=== PATIENT | male | born 1985 | race Caucasian/White ===

== ENCOUNTER 2019-02-15 16:38 | Emergency (ER) | payer SELFPAY ==
[~2019-02-15] VITALS: Ht 165.1 cm; Wt 84.0 kg
[2019-02-15 16:41] VITALS: Ht 165.1 cm; Wt 84.0 kg
[2019-02-15] MEDS ORDERED: CIPROFLOXACIN 500 MG TAB PO STA (17:05)
[2019-02-15] MEDS ORDERED: ONDANSETRON INJ 8 MG in DEXTROSE 5% 50 ML IV STA (17:05)
[2019-02-15] MEDS ORDERED: SOD CHLORIDE 0.9% 1,000 ML IV STA (17:05)
[2019-02-15] MEDS ORDERED: KETOROLAC 30 MG INJ IV STA (17:05)
--- NOTE | 2019-02-15 17:17 | ERD ---
ER Documentation Chief Complaint Chief Complaint vomitting and abdominal pain since last night HPI Patient is a 33 years old male with no known PMHx presenting to the clinic for NBNB emesis, diffuse abdominal pain, watery diarrhea, bloating, fever, and chills since yesterday night. Patient admits to eating dry shrimp from the [place] that was spoiled. Patient reports of foul odor from his stool with black appearance. Patient reports taking some OTC medication for nausea without resolution. ROS All systems reviewed and are negative except as per history of present illness. Medications Home Meds Active Scripts Ciprofloxacin (Ciprofloxacin) 250 Mg/5 Ml Ness..rec, 250 MG PO BID for 3 Days, ML Prov:FRANCHESCA HDEZ PA-C 02/15/19 Ondansetron Hcl* (Zofran*) 4 Mg Tablet, 4 MG PO Q6H for NAUSEA AND/OR VOMITING, #30 TAB Prov:FRANCHESCA HDEZ PA-C 02/15/19 Loperamide Hcl* (Loperamide Hcl*) 2 Mg Cap, 4 MG PO ONCE for 7 Days, CAP MAX 16 mg/day Prov:FRANCHESCA HDEZ PA-C 02/15/19 PMhx/Soc Medical and Surgical Hx: pt denies Medical Hx, pt denies Surgical Hx History of Surgery: No Anesthesia Reaction: No Hx Neurological Disorder: No Hx Respiratory Disorders: No Hx Cardiac Disorders: No Hx Psychiatric Problems: No Hx Miscellaneous Medical Probl: No Hx Alcohol Use: No Hx Substance Use: No Hx Tobacco Use: No Smoking Status: Never smoker Physical Exam Vitals Vital Signs Date Temp Pulse Resp B/P (MAP) Pulse Ox O2 O2 Flow FiO2 Time Delivery Rate 02/15/19 99.3 91 18 167/92 95 16:41 (117) Physical Exam Const: Mild lethargy. Patient is lying on the bed while covering his abdomen with right hand. Head: Atraumatic Eyes: Normal Conjunctiva Resp: Clear to auscultation bilaterally Cardio: Regular rate and rhythm, no murmurs Abd: Mildly rigid, LLQ tenderness, distended. Normal bowel sounds. Negative Mackey sign, negative McBurney's point tenderness, negative Rovsing sign, negative rebound tenderness, negative guarding. Skin: No petechiae or rashes Back: No midline or flank tenderness. Negative CVAT. Neur: Awake and alert Psych: Normal Mood and Affect Result Diagram: 02/15/19 1725 02/15/19 1725 Results 24 hrs Laboratory Tests Test 02/15/19 17:25 White Blood Count 9.7 10^3/ul Red Blood Count 5.03 10^6/ul Hemoglobin 14.7 g/dl Hematocrit 43.1 % Mean Corpuscular Volume 85.7 fl Mean Corpuscular Hemoglobin 29.2 pg Mean Corpuscular Hemoglobin Concent 34.1 g/dl Red Cell Distribution Width 13.4 % Platelet Count 273 10^3/UL Mean Platelet Volume 9.5 fl Immature Granulocytes % 0.300 % Neutrophils % 63.9 % Lymphocytes % 23.3 % Monocytes % 11.4 % Eosinophils % 0.4 % Basophils % 0.7 % Nucleated Red Blood Cells % 0.0 /100WBC Immature Granulocytes # 0.030 10^3/ul Neutrophils # 6.2 10^3/ul Lymphocytes # 2.3 10^3/ul Monocytes # 1.1 10^3/ul Eosinophils # 0.0 10^3/ul Basophils # 0.1 10^3/ul Nucleated Red Blood Cells # 0.0 10^3/ul Sodium Level 143 mmol/L Potassium Level 3.7 mmol/L Chloride Level 107 mmol/L Carbon Dioxide Level 23 mmol/L Anion Gap 13 Blood Urea Nitrogen 7 mg/dl Creatinine 0.68 mg/dl Est Glomerular Filtrat Rate mL/min > 60 mL/min Glucose Level 109 mg/dl Calcium Level 9.6 mg/dl Total Bilirubin 0.4 mg/dl Direct Bilirubin 0.00 mg/dl Indirect Bilirubin 0.4 mg/dl Aspartate Amino Transf (AST/SGOT) 112 IU/L Alanine Aminotransferase (ALT/SGPT) 157 IU/L Alkaline Phosphatase 59 IU/L Total Protein 8.2 g/dl Albumin 4.8 g/dl Globulin 3.40 g/dl Albumin/Globulin Ratio 1.41 Lipase 94 U/L Current Medications Medications Dose Sig/[place] Start Time Status Last (Trade) Ordered Route PRN Stop Time Admin Dose Reason Admin Sodium 1,000 ml @ Q1H STAT 02/15/19 DC 02/15/19 Chloride 1,000 mls/hr IV 17:05 17:23 02/15/19 18:04 Ondansetron 54 ml @ ONCE STAT 02/15/19 DC HCl 8 200 mls/hr IV 17:05 mg/Dextrose 02/15/19 17:37 Ketorolac 30 mg ONCE STAT 02/15/19 DC 02/15/19 Tromethamine IV 17:05 17:23 (Toradol) 02/15/19 17:10 500 mg ONCE STAT 02/15/19 DC 02/15/19 Ciprofloxacin PO 17:05 17:23 (Cipro) 02/15/19 17:10 Ondansetron 4 mg ONCE STAT 02/15/19 DC 02/15/19 HCl (Zofran IV 17:36 17:48 Inj) 02/15/19 17:37 Procedures/MDM Patient was seen and evaluated for possible food poisoning, most likely gas troenteritis. Patient's CBC/CMP/Lipase are grossly unremarkable. Patient was given IV NS, Zofran, Cipro with improvement of symptoms. No imaging required as colitis, appendicitis, cholecystitis, pancreatitis least likely. Patient is stable and ready for discharge. Patient was advised to f/u with PCP. Departure Diagnosis: Primary Impression: Gastroenteritis Condition: Stable Patient Instructions: Food Poisoning Or Gastroenteritis (6Y-Adult) Referrals: [facility] Additional Instructions: Paciente aconseja volver a Departamento de urgencias inmediatamente para sntomas nuevos o que empeoran . Paciente aconseja posteriores con el PCP en 2-3 myrick . Paciente verbaliza la comprehensin y est de acuerdo con el tratamiento y el curso de accin. Si el paciente no tiene ninguna de atencin primaria pueden seguir con [facility] [id number] [place] [address] o LAC + [address] [id number] FRANCHESCA HDEZ PA-C Feb 15, 2019 17:17
[2019-02-15] MEDS ORDERED: ONDANSETRON 4 MG INJ IV STA (17:36)
[2019-02-15] MEDS ORDERED: LOPE-123 PO (18:33)
[2019-02-15] MEDS ORDERED: ONDA4TAB8 PO (18:33)
[2019-02-15] MEDS ORDERED: CIPR250S3 PO (18:33)
[2019-02-15 19:37] VITALS: BP 142/88; PULSE 95; RESP 18
== END 2019-02-15 19:38 | disposition home or self-care (01) ==
LOC: FTE 16:38
DX: K52.9 Noninfective gastroenteritis and colitis, unspecified (principal)
CPT/HCPCS: 36415; 80053; 83690; 85025; 96374; 96375; 99284; J1885; J2405; J7030

== ENCOUNTER 2019-07-04 16:53 | Emergency (ER) | payer SELFPAY ==
[~2019-07-04] VITALS: Ht 165.1 cm; Wt 89.0 kg
[~2019-07-04 16:53] MED LIST: CIPR250S3 PO; IBUP-1542 PO; LOPE-123 PO; ONDA4TAB8 PO
[2019-07-04 16:59] VITALS: Ht 165.1 cm; Wt 89.0 kg
[2019-07-04] MEDS ORDERED: KETOROLAC 30 MG INJ IM STA (17:33)
[2019-07-04] MEDS ORDERED: DIPHTH/TET/ACEL PERTUSS (ADULT) 0.5 ML VIAL IM* ONE (18:00)
[2019-07-04 18:56] VITALS: BP 135/67; PULSE 78; RESP 18
== END 2019-07-04 18:57 | disposition home or self-care (01) ==
LOC: FTE 16:53
DX: S80.211A Abrasion, right knee, initial encounter (principal); X58.XXXA Exposure to other specified factors, initial encounter; Y92.9 Unspecified place or not applicable; Z23 Encounter for immunization
CPT/HCPCS: 73562; 90471; 90715; 96372; 99284; J1885